=== PATIENT | male | born 1945 | race Caucasian/White ===

== ENCOUNTER → 2016-12-18 | Outpatient (CLI) | payer OTHER, MEDICARE | LOC: FIMAGING 08:14 | DX: I77.810 Thoracic aortic ectasia (principal); R91.1 Solitary pulmonary nodule; R93.8 Abnormal findings on diagnostic imaging of other specified body structures; K44.9 Diaphragmatic hernia without obstruction or gangrene ==

== ENCOUNTER → 2017-03-26 | Outpatient (CLI) | payer OTHER, MEDICARE | LOC: BMCIMAGING 15:43 | PROVIDERS: ATTEND Physician Assistant Medical | DX: I77.1 Stricture of artery (principal); J40 Bronchitis, not specified as acute or chronic ==

== ENCOUNTER → 2018-08-31 | Outpatient (CLI) | payer OTHER, MEDICARE | LOC: SUPIMAGING 08:44 | PROVIDERS: ATTEND Registered Nurse | DX: M19.041 Primary osteoarthritis, right hand (principal); M11.231 Other chondrocalcinosis, right wrist; M85.641 Other cyst of bone, right hand | CPT/HCPCS: 73130-PN ==

== ENCOUNTER → 2018-09-12 | Outpatient (CLI) | payer OTHER, MEDICARE | LOC: FIMAGING 12:17 ==